=== PATIENT | female | born 1945 | race Caucasian/White ===

== ENCOUNTER → 2017-10-15 | Outpatient (CLI) | payer MEDICARE ==
[~2017-10-15] MED LIST: ANAS1TAB7 PO; ASPI-1026 PO; ATEN100T PO; CALC-877 PO; MULT-1077 PO; NIZA150C7 PO; PRAV40TA3 PO; VENL150T3 PO; VITA400C25 PO; VITAMIN D2 PO
== END | disposition home or self-care (01) ==
LOC: RAH 10:14
PROVIDERS: ATTEND Internal Medicine Gastroenterology
DX: R13.10 Dysphagia, unspecified (principal); R63.3 Feeding difficulties
CPT/HCPCS: G8996; G8997; G8998; 74230; 92611